=== PATIENT | female | born 1960 | race Caucasian/White ===

== ENCOUNTER → 2018-08-05 | Outpatient (CLI) | payer BC, SELFPAY ==
[2018-08-05 13:44] VITALS: BP 123/86; PULSE 87; RESP 16; TEMP 36.6; O2SAT 93; BMI 37.3
== END | disposition home or self-care (01) ==
DX: D50.9 Iron deficiency anemia, unspecified (principal)
CPT/HCPCS: 96365; 96366; J1756; J7050; A4216